=== PATIENT | female | born 1935 | race African-American/Black ===

== ENCOUNTER 2017-10-27 22:35 | Inpatient (IN) | payer MEDICARE, MEDICAID ==
[~2017-10-27] VITALS: Ht 177.8 cm; Wt 59.2 kg
[2017-10-27] MEDS ORDERED: BP MEDS (22:42)
[2017-10-27] MEDS ORDERED: Sodium Chloride 500ML 500 ML IV ONE (22:49)
--- NOTE | 2017-10-27 22:56 | Emergency Room Report ---
History of Present Illness General Chief Complaint: Dizziness Source: Patient Present Illness HPI 82-year-old female presents ED for evaluation. Patient brought in by EMS for evaluation. Per EMS patient was found wandering on the street and a social work nurse stopped to see the patient. He was concerned about the patient and call 911. Per EMS patient was walking with an unsteady gait. Complaining of headache. Throbbing, 7 out of 10, nonradiating. Denies chest pain or shortness of breath. Denies fevers or chills. Patient states that she is coming from [place] and is staying in a hotel. Does not know the name of the hotel. States she stays with a friend and [place]. Does not have any family. States she has history of hypertension but does not know the names of her medications. No other aggravating relieving factors. Denies any other associated symptoms Allergies: Coded Allergies: No Known Allergies (Unverified , 10/27/17) Patient History Past Medical History: HTN Past Surgical History: none Pertinent Family History: none Social History: Denies: smoking, alcohol use, drug use Now: No Immunizations: UTD Reviewed Nursing Documentation: PMH: Agreed; PSxH: Agreed Nursing Documentation-PMH Hx Hypertension: Yes Review of Systems All Other Systems: negative except mentioned in HPI Physical Exam Vital Signs Date Time Temp Pulse Resp B/P (MAP) Pulse Ox O2 Delivery O2 Flow Rate FiO2 10/27/17 22:39 97.9 89 16 94/56 93 Room Air 97.9 Sp02 EP Interpretation: reviewed, normal General Appearance: no apparent distress, alert, GCS 15, non-toxic Head: normocephalic, atraumatic Eyes: bilateral eye normal inspection, bilateral eye PERRL ENT: hearing grossly normal, normal pharynx, no angioedema, normal voice Neck: full range of motion, supple/symm/no masses Respiratory: chest non-tender, lungs clear, normal breath sounds, speaking full sentences Cardiovascular #1: regular rate, rhythm, no edema Cardiovascular #2: 2+ carotid (R), 2+ carotid (L), 2+ radial (R), 2+ radial (L) , 2+ dorsalis pedis (R), 2+ dorsalis pedis (L) Gastrointestinal: normal bowel sounds, non tender, soft, non-distended, no guarding, no rebound Rectal: deferred Genitourinary: normal inspection, no CVA tenderness Musculoskeletal: back normal, gait/station normal, normal range of motion, non- tender Neurologic: alert, oriented x3, responsive, motor strength/tone normal, sensory intact, speech normal Psychiatric: judgement/insight normal, memory normal, mood/affect normal, no suicidal/homicidal ideation Reflexes: 3+ bicep (R), 3+ bicep (L), 3+ tricep (R), 3+ tricep (L), 3+ knee (R) , 3+ knee (L) Skin: normal color, no rash, warm/dry, well hydrated Lymphatic: no adenopathy Medical Decision Making Diagnostic Impression: Primary Impression: Gravely disabled Additional Impression: Unsteady gait ER Course Hospital Course 82 yo F presents to ED with AMS, unsteady gait Differential diagnoses include: IA/unstable angina, arrythmia, dehydration, CVA/ TIA Clinical course Patient placed on stretcher. on telemetry monitor. After initial history and physical I ordered labs, EKG, chest x-ray, IVFs, CT Brain labs reviewed- no leukocytosis, hemoglobin/hematocrit ok, electrolytes okay, troponins negative EKG- NSR no acute ischemic changes interpreted by me Chest x-ray- no acute process CT brain-unremarkable Patient is confused, elderly and frail. Unsteady gait. Does not have a place to stay. Patient is not safe for discharge and will require admission. Case discussed with Dr. Urbano and he agreed to accept the patient to his service for further care and support I. I feel this is a highly complex case requiring extensive working including EKG/Rhythm strip, Xray/CT/US, Blood/urine lab work, repeat exams while in ED, and administration of strong opiates/narcotics for pain control, admission to hospital or close patient follow up. Diagnosis - gravely disabled, unsteady gait admitted to floor in serious condition Labs Test 10/27/17 23:05 White Blood Count 3.9 K/UL (4.8-10.8) Red Blood Count 4.96 M/UL (4.20-5.40) Hemoglobin 14.9 G/DL (12.0-16.0) Hematocrit 43.8 % (37.0-47.0) Mean Corpuscular Volume 88 FL (80-99) Mean Corpuscular Hemoglobin 30.0 PG (27.0-31.0) Mean Corpuscular Hemoglobin Concent 34.0 G/DL (32.0-36.0) Red Cell Distribution Width 11.6 % (11.6-14.8) Platelet Count 195 K/UL (150-450) Mean Platelet Volume 6.2 FL (6.5-10.1) Neutrophils (%) (Auto) 66.8 % (45.0-75.0) Lymphocytes (%) (Auto) 21.9 % (20.0-45.0) Monocytes (%) (Auto) 8.0 % (1.0-10.0) Eosinophils (%) (Auto) 2.1 % (0.0-3.0) Basophils (%) (Auto) 1.2 % (0.0-2.0) Sodium Level 143 MMOL/L (136-145) Potassium Level 3.0 MMOL/L (3.5-5.1) Chloride Level 104 MMOL/L (98-107) Carbon Dioxide Level 27 MMOL/L (21-32) Anion Gap 13 mmol/L (5-15) Blood Urea Nitrogen 14 mg/dL (7-18) Creatinine 1.1 MG/DL (0.55-1.30) Estimat Glomerular Filtration Rate mL/min (>60) Glucose Level 103 MG/DL (74-106) Calcium Level 8.7 MG/DL (8.5-10.1) Total Bilirubin 0.9 MG/DL (0.2-1.0) Aspartate Amino Transf (AST/SGOT) 28 U/L (15-37) Alanine Aminotransferase (ALT/SGPT) 25 U/L (12-78) Alkaline Phosphatase 62 U/L (46-116) Total Creatine Kinase 279 U/L (26-308) Creatine Kinase MB 4.7 NG/ML (0.0-3.6) Creatine Kinase MB Relative Index 1.6 Troponin I 0.004 ng/mL (0.000-0.056) Total Protein 7.2 G/DL (6.4-8.2) Albumin 3.8 G/DL (3.4-5.0) Globulin 3.4 g/dL Albumin/Globulin Ratio 1.1 (1.0-2.7) EKG Diagnostic Results Rate: normal Rhythm: NSR ST Segments: other - bifasciular block ASA given to the pt in ED: No Rhythm Strip Diag. Results EP Interpretation: yes Rhythm: NSR, no PVC's, no ectopy Chest X-Ray Diagnostic Results Chest X-Ray Diagnostic Results : Chest X-Ray Ordered: Yes # of Views/Limited/Complete: 1 View Indication: Other - ams EP Interpretation: Yes Interpretation: no consolidation, no effusion, no pneumothorax, no acute cardiopulmonary disease Impression: No acute disease Electronically Signed by: Electronically signed by Alcides Naidu MD CT/MRI/US Diagnostic Results CT/MRI/US Diagnostic Results : Imaging Test Ordered: CT head Impression no acute process Last Vital Signs Date Time Temp Pulse Resp B/P (MAP) Pulse Ox O2 Delivery O2 Flow Rate FiO2 10/27/17 22:39 97.9 89 16 94/56 93 Room Air 97.9 Status: improved Disposition: ADMITTED INPATIENT Condition: Serious Alcides Naidu MD Oct 27, 2017 22:56
[2017-10-27] MEDS ORDERED: Acetaminophen 500mg (ES) tab ORAL ONE (23:00)
[2017-10-27 23:22] LABS: BASOPHILS % (AUTO) 1.2 % (0.0-2.0); EOSINOPHILS % (AUTO) 2.1 % (0.0-3.0); HEMATOCRIT 43.8 % (37.0-47.0); HEMOGLOBIN 14.9 G/DL (12.0-16.0); LYMPHOCYTES % (AUTO) 21.9 % (20.0-45.0); MEAN CORPUSCULAR VOLUME 88 FL (80-99); NEUTROPHILS % (AUTO) 66.8 % (45.0-75.0); PLATELET COUNT 195 K/UL (150-450); RED BLOOD COUNT 4.96 M/UL (4.20-5.40); RED CELL DISTRIBUTION WIDTH 11.6 % (11.6-14.8); WHITE BLOOD COUNT 3.9 K/UL (4.8-10.8)
[2017-10-27 23:29] LABS: ANION GAP 13 mmol/L (5-15); BLOOD UREA NITROGEN 14 mg/dL (7-18); CALCIUM 8.7 MG/DL (8.5-10.1); CARBON DIOXIDE 27 MMOL/L (21-32); CHLORIDE 104 MMOL/L (98-107); CREATININE 1.1 MG/DL (0.55-1.30); SODIUM 143 MMOL/L (136-145)
[2017-10-27 23:42] LABS: ALANINE AMINOTRANSFERASE 25 U/L (12-78); ALBUMIN 3.8 G/DL (3.4-5.0); ALBUMIN/GLOBULIN RATIO 1.1 (1.0-2.7); ALKALINE PHOSPHATASE 62 U/L (46-116); ASPARTATE AMINO TRANSFERASE 28 U/L (15-37); BILIRUBIN,TOTAL 0.9 MG/DL (0.2-1.0); CKMB 4.7 NG/ML (0.0-3.6); CREATINE KINASE 279 U/L (26-308)
[2017-10-27 23:43] VITALS: BP 101/62
[2017-10-28 00:19] LABS: APPEARANCE,URINE CLEAR; BILIRUBIN, URINE NEGATIVE (NEGATIVE); COLOR,URINE PALE YELLOW; GLUCOSE, URINE (UA) NEGATIVE (NEGATIVE); KETONES,URINE NEGATIVE (NEGATIVE); LEUKOCYTE ESTERASE ,URINE 1+ (NEGATIVE); NITRITE,URINE NEGATIVE (NEGATIVE); PH,URINE 5 (4.5-8.0); PROTEIN,URINE NEGATIVE (NEGATIVE); UROBILINOGEN,URINE NORMAL MG/DL (0.0-1.0)
[2017-10-28 00:50] VITALS: BP 103/74
--- NOTE | 2017-10-28 01:09 | Diagnostic Imaging Report ---
History: DIZZY Exam: XR CXR 1 VIEW Comparison: None available FINDINGS: The lungs appear clear. The cardiac silhouette appears upper limits. Ectatic appearing thoracic aorta. Appearance of right shoulder degenerative changes. IMPRESSION: No evidence of acute disease. The cardiac silhouette appears upper limits. Ectatic appearing thoracic aorta.
--- NOTE | 2017-10-28 01:21 | Diagnostic Imaging Report ---
History: H/A Exam: CT HEAD Without Contrast Technique more: CTDI is 70.38 mGy and DLP is 1411 mGy-cm. Technique more: One or more of the following dose reduction techniques were used: automated exposure control, adjustment of the mA and/or kV according to patient size, use of iterative reconstruction technique. Comparison: None available FINDINGS: No intracranial hemorrhage, mass effect or CT evidence of acute infarct. The ventricles are within limits and midline. Volume loss, atrophy noted. The visualized paranasal sinuses, mastoids and orbits are within limits. Suggestion of possible mild right facial soft tissue swelling axial 5, clinically correlate. IMPRESSION: No intracranial hemorrhage, mass effect or CT evidence of acute infarct. Volume loss, atrophy noted. Suggestion of possible mild right facial soft tissue swelling axial 5, clinically correlate.
[2017-10-28 04:00] VITALS: BP 131/54
[2017-10-28] MEDS ORDERED: Zolpidem 5mg tab ORAL PRN (05:00)
[2017-10-28] MEDS ORDERED: Milk of Magnesia 30ml Ud ORAL PRN (05:00)
[2017-10-28 08:00] VITALS: BP 139/95
[2017-10-28] MEDS: Heparin 5000 units/ml inj SUBQ SCH ×2 (09:05→20:07)
[2017-10-28 12:00] VITALS: BP 119/75
--- NOTE | 2017-10-28 14:18 | Cardiology Report ---
APPROVED REPORT EKG Measurement Heart [id number] FL 198P-6 [id number] Normal sinus rhythm Right bundle branch block Left posterior fascicular block Bifascicular block Septal infarct, age undetermined Abnormal ECG
--- NOTE | 2017-10-28 14:41 | History & Physical ---
History and Physical History & Physicial 82-year-old female brought in when she was found wandering on the street and a social work case manager stopped to see the patient. Patient states that she is coming from [place] and is staying in a hotel. She does not have any family. patient presented for placement Allergies: No Known Allergies (Unverified , 10/27/17) Patient History Past Medical History: HTN Past Surgical History: none Pertinent Family History: none Social History: nonsmoker or drinker, unable Reviewed of systems: denies Physical WDWN NAD clear breath sounds bilaterally without rhonchi or wheeze [id number] without MRG NABS nontender no HSM no CCE nonfocal vital reviewed Labs Test 10/27/17 00:00 10/27/17 23:05 Urine Color Pale yellow Urine Appearance Clear Urine pH 5 (4.5-8.0) Urine Specific [place] 1.010 (1.005-1.035) Urine Protein Negative (NEGATIVE) Urine Glucose (UA) Negative (NEGATIVE) Urine Ketones Negative (NEGATIVE) Urine Occult Blood Negative (NEGATIVE) Urine Nitrite Negative (NEGATIVE) Urine Bilirubin Negative (NEGATIVE) Urine Urobilinogen Normal MG/DL (0.0-1.0) Urine Leukocyte Esterase 1+ (NEGATIVE) Urine RBC 0-2 /HPF (0 - 2) Urine WBC 2-4 /HPF (0 - 2) Urine Squamous Epithelial Cells Occasional /LPF Urine Bacteria Occasional /HPF (NONE) White Blood Count 3.9 K/UL (4.8-10.8) Red Blood Count 4.96 M/UL (4.20-5.40) Hemoglobin 14.9 G/DL (12.0-16.0) Hematocrit 43.8 % (37.0-47.0) Mean Corpuscular Volume 88 FL (80-99) Mean Corpuscular Hemoglobin 30.0 PG (27.0-31.0) Mean Corpuscular Hemoglobin Concent 34.0 G/DL (32.0-36.0) Red Cell Distribution Width 11.6 % (11.6-14.8) Platelet Count 195 K/UL (150-450) Mean Platelet Volume 6.2 FL (6.5-10.1) Neutrophils (%) (Auto) 66.8 % (45.0-75.0) Lymphocytes (%) (Auto) 21.9 % (20.0-45.0) Monocytes (%) (Auto) 8.0 % (1.0-10.0) Eosinophils (%) (Auto) 2.1 % (0.0-3.0) Basophils (%) (Auto) 1.2 % (0.0-2.0) Sodium Level 143 MMOL/L (136-145) Potassium Level 3.0 MMOL/L (3.5-5.1) Chloride Level 104 MMOL/L (98-107) Carbon Dioxide Level 27 MMOL/L (21-32) Anion Gap 13 mmol/L (5-15) Blood Urea Nitrogen 14 mg/dL (7-18) Creatinine 1.1 MG/DL (0.55-1.30) Estimat Glomerular Filtration Rate mL/min (>60) Glucose Level 103 MG/DL (74-106) Calcium Level 8.7 MG/DL (8.5-10.1) Total Bilirubin 0.9 MG/DL (0.2-1.0) Aspartate Amino Transf (AST/SGOT) 28 U/L (15-37) Alanine Aminotransferase (ALT/SGPT) 25 U/L (12-78) Alkaline Phosphatase 62 U/L (46-116) Total Creatine Kinase 279 U/L (26-308) Creatine Kinase MB 4.7 NG/ML (0.0-3.6) Creatine Kinase MB Relative Index 1.6 Troponin I 0.004 ng/mL (0.000-0.056) Total Protein 7.2 G/DL (6.4-8.2) Albumin 3.8 G/DL (3.4-5.0) Globulin 3.4 g/dL Albumin/Globulin Ratio 1.1 (1.0-2.7) IMPRESSION dementia likely chronic encephalopathy hypertension PLAN placement currently alert no acute needs impression, plan, and exam edited and reviewed in detail care discussed with Hi Morales MD Oct 28, 2017 14:41
[2017-10-28 16:00] VITALS: BP 124/71
[2017-10-28 20:00] VITALS: BP 115/83
[2017-10-29] VITALS: BP 121/89
[2017-10-29 04:00] VITALS: BP 124/81
[2017-10-29 08:00] VITALS: BP 118/72
[2017-10-29] MEDS: Heparin 5000 units/ml inj SUBQ SCH ×2 (08:30→20:58)
--- NOTE | 2017-10-29 09:51 | General Progress Note ---
Assessment/Plan Assessment/Plan IMPRESSION dementia likely chronic encephalopathy hypertension PLAN placement PENDING currently alert no acute needs currently impression, plan, and exam edited and reviewed in detail care discussed with RN Subjective Allergies: Coded Allergies: No Known Allergies (Unverified , 10/27/17) Subjective stable care discussed Objective Last 24 Hour Vital Signs Date Time Temp Pulse Resp B/P (MAP) Pulse Ox O2 Delivery O2 Flow Rate FiO2 10/29/17 08:00 97.5 71 18 118/72 (87) 98 97.5 10/29/17 04:00 98.4 71 20 124/81 (95) 97 98.4 10/29/17 00:00 98.2 73 17 121/89 (100) 96 98.2 10/28/17 21:00 Room Air 10/28/17 20:00 98.2 85 18 115/83 (94) 94 98.2 10/28/17 16:00 97.9 77 20 124/71 (88) 96 97.9 10/28/17 12:00 98.2 73 20 119/75 (90) 95 98.2 Intake and Output 10/28/17 10/29/17 19:00 07:00 Intake Total 2060 ml Balance 2060 ml Intake Oral 1260 ml IV Total 800 ml # Voids 6 2 # Bowel Movements 1 Height (Feet): 5 Height (Inches): 10.00 Weight (Pounds): 138 Hi Urbano MD Oct 29, 2017 09:51
[2017-10-29 11:58] VITALS: BP 118/81
[2017-10-29 15:50] VITALS: BP 123/73
[2017-10-29 20:00] VITALS: BP 121/75
[2017-10-30] VITALS: BP 140/84
[2017-10-30 04:00] VITALS: BP 111/72
[2017-10-30 08:00] VITALS: BP 127/81
--- NOTE | 2017-10-30 08:03 | General Progress Note ---
Assessment/Plan Assessment/Plan IMPRESSION dementia likely chronic encephalopathy hypertension PLAN placement PENDING reviewed SW notes currently alert no acute needs currently may dc when placement found impression, plan, and exam edited and reviewed in detail care discussed with RN Subjective Allergies: Coded Allergies: No Known Allergies (Unverified , 10/27/17) Subjective stable care discussed Objective Last 24 Hour Vital Signs Date Time Temp Pulse Resp B/P (MAP) Pulse Ox O2 Delivery O2 Flow Rate FiO2 10/30/17 04:00 98.4 20 111/72 (85) 96 98.4 10/30/17 00:00 98.1 81 18 140/84 (102) 96 98.1 10/29/17 21:00 Room Air 10/29/17 20:00 98.6 73 17 121/75 (90) 95 98.6 10/29/17 15:50 97.9 68 18 123/73 (90) 95 97.9 10/29/17 11:58 97.7 76 18 118/81 (93) 95 97.7 10/29/17 09:00 Room Air Intake and Output 10/29/17 10/30/17 19:00 07:00 Intake Total 840 ml 930 ml Output Total 3 ml 500 ml Balance 837 ml 430 ml Intake Oral 840 ml 930 ml Output Urine Total 3 ml 500 ml # Voids 2 3 # Bowel Movements 1 Height (Feet): 5 Height (Inches): 10.00 Weight (Pounds): 138 Hi Urbano MD Oct 30, 2017 08:03
[2017-10-30] MEDS: Heparin 5000 units/ml inj SUBQ SCH ×2 (08:36→20:52)
[2017-10-30 12:00] VITALS: BP 139/90
[2017-10-30 16:00] VITALS: BP 100/70
[2017-10-30 20:00] VITALS: BP 125/79
[2017-10-31] VITALS: BP 117/75
[2017-10-31 04:00] VITALS: BP 135/89
[2017-10-31 08:00] VITALS: BP 102/69
[2017-10-31] MEDS: Heparin 5000 units/ml inj SUBQ SCH ×2 (08:47→20:10)
[2017-10-31 11:52] VITALS: BP 128/85
[2017-10-31 16:00] VITALS: BP 113/85
--- NOTE | 2017-10-31 16:55 | General Progress Note ---
Assessment/Plan Assessment/Plan IMPRESSION dementia likely chronic encephalopathy hypertension PLAN placement PENDING reviewed SW notes currently alert no acute needs currently may dc when placement found impression, plan, and exam edited and reviewed in detail care discussed with RN Subjective Allergies: Coded Allergies: No Known Allergies (Unverified , 10/27/17) Subjective stable dc planning Objective Last 24 Hour Vital Signs Date Time Temp Pulse Resp B/P (MAP) Pulse Ox O2 Delivery O2 Flow Rate FiO2 10/31/17 16:00 99.0 78 18 113/85 (94) 97 99.0 10/31/17 11:52 98.8 73 18 128/85 (99) 97 98.8 10/31/17 09:00 Room Air 10/31/17 08:00 98.0 81 18 102/69 (80) 97 98.0 10/31/17 04:00 97.7 69 18 135/89 (104) 97 97.7 10/31/17 00:00 98.1 68 18 117/75 (89) 97 98.1 10/30/17 21:00 Room Air 10/30/17 20:00 97.9 76 18 125/79 (94) 98 97.9 Intake and Output 10/30/17 10/31/17 19:00 07:00 Intake Total 300 ml 400 ml Balance 300 ml 400 ml Intake Oral 300 ml 400 ml # Voids 3 4 Height (Feet): 5 Height (Inches): 10.00 Weight (Pounds): 130 Hi Urbano MD Oct 31, 2017 16:55
[2017-10-31 20:00] VITALS: BP 134/83
[2017-11-01] VITALS: BP 123/70
[2017-11-01 04:00] VITALS: BP 111/64
[2017-11-01 08:00] VITALS: BP 117/64
[2017-11-01] MEDS: Heparin 5000 units/ml inj SUBQ SCH (08:39)
[2017-11-01] MEDS ORDERED: Pneumococcal Vaccine 25mcg/0.5ml IM ONE (10:30)
[2017-11-01 12:00] VITALS: BP 135/85
--- NOTE | 2017-11-01 12:16 | General Progress Note ---
Assessment/Plan Assessment/Plan IMPRESSION dementia likely chronic encephalopathy hypertension PLAN dc today to assisted living no acute needs currently may dc without change impression, plan, and exam edited and reviewed in detail care discussed with RN Subjective Allergies: Coded Allergies: No Known Allergies (Unverified , 10/27/17) Subjective stable dc today Objective Last 24 Hour Vital Signs Date Time Temp Pulse Resp B/P (MAP) Pulse Ox O2 Delivery O2 Flow Rate FiO2 11/01/17 09:00 Room Air 11/01/17 08:00 97.7 72 18 117/64 (81) 98 97.7 11/01/17 04:00 98.3 62 18 111/64 (80) 98 98.3 11/01/17 00:00 97.7 79 18 123/70 (87) 98 97.7 10/31/17 21:00 Room Air 10/31/17 20:00 98.9 72 18 134/83 (100) 98 98.9 10/31/17 16:00 99.0 78 18 113/85 (94) 97 99.0 Intake and Output 10/31/17 11/01/17 19:00 07:00 Intake Total 480 ml 250 ml Balance 480 ml 250 ml Intake Oral 480 ml 250 ml # Voids 3 2 Height (Feet): 5 Height (Inches): 10.00 Weight (Pounds): 130 Hi Urbano MD Nov 01, 2017 12:16
--- NOTE | 2017-11-02 08:57 | Discharge Summary ---
Discharge Summary Discharge Summary _ DATE OF ADMISSION: 10/27/2017 DATE OF DISCHARGE: 11/01/2017 BRIEF HOSPITAL COURSE: Patient is an 82-year-old female, she was found wandering the street and was seen by a social sciences department chair who called EMS. Per EMS, patient was walking with an unsteady gait, complaining of headache which was throbbing, 7 out of 10, and nonradiating. She denied chest pain or shortness of breath. She denied fever or chills. She stated that she is from [place] and was currently staying in a hotel however does not know the name of the place. She did not have any family. She has a history of hypertension, however, does not recall the name of her medications. On evaluation at ED, blood pressure was 94/56. She was saturating 93% on room air. The patient was confused, elderly and frail. Blood work did not show any leukocytoses, hemoglobin and hematocrit were stable. Troponin was negative. CT of the brain showed atrophy with volume loss. There was no acute intracranial hemorrhage, mass effect or evidence of acute infarct. Chest x-ray was without any evidence of acute disease. Patient was gravely disabled and was admitted for placement. Potassium was low she was given potassium replacement. She underwent PT and OT evaluation. workers compensation legal secretary was called in to aid with placement. Insurance denied SNF placement as there was no skilled needs. She was referred to [facility]. She was finally admitted to [facility] assisted living. 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 I have been assigned to dictate discharge summary on this account, and I was not involved in the patient's management. Lauar Chase NP Nov 02, 2017 08:57
== END 2017-11-01 14:00 | disposition home or self-care (01) | DRG 884 ==
LOC: EDBD 22:35 → EMR 22:57 → 4E 23:51 → EDBEDREQ 23:53
DX: F03.90 Unspecified dementia, unspecified severity, without behavioral disturbance, psychotic disturbance, mood disturbance, and anxiety (principal); G93.40 Encephalopathy, unspecified; I10 Essential (primary) hypertension; E87.6 Hypokalemia; R26.81 Unsteadiness on feet; R51 Headache; Z23 Encounter for immunization
CPT/HCPCS: 36415; 70450; 71045; 80053; 81003; 82550; 82553; 84484; 85025; 90732; 93005; J8499